=== PATIENT | male | born 1950 | race Caucasian/White ===

== ENCOUNTER 2023-05-12 10:16 | Emergency (ER) | payer MEDICARE, BC, SELFPAY ==
[2023-05-12 10:21] VITALS: BP 156/81; PULSE 65; RESP 18; TEMP 36.8; O2SAT 100; BMI 48.5
--- NOTE | 2023-05-12 10:23 | XRR_ITS ---
PROCEDURE INFORMATION: Exam: XR Chest Exam date and time: 05/12/2023 10:38 AM Age: 72 years old Clinical indication: Cough and dyspnea; Additional info: Dyspnea/cough TECHNIQUE: Imaging protocol: Radiologic exam of the chest. Views: 1 view. COMPARISON: No relevant prior studies available. FINDINGS: Lungs: Mild atelectasis or fibrosis at the cardiac apex. Mild diffuse interstitial prominence. Pleural spaces: Unremarkable. No pleural effusion. No pneumothorax. Heart/Mediastinum: Unremarkable. No cardiomegaly. Bones/joints: Unremarkable. XR/XR chest 1V portable [id number] IMPRESSION: No acute cardiopulmonary disease.
--- NOTE | 2023-05-12 10:23 | ECG_ITS ---
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 Measurements Intervals [place] Rate: 82 P: 48 NH: 145 QRS: 22 QRSD: 100 T: 31 QT: 392 QTc: 460 Interpretive Statements SINUS RHYTHM No previous ECG available for comparison Electronically Signed On 05-12-2023 11:02:07 MENTAL HEALTH SOCIAL WORKER by Archie Curry M.D. [id number]
[2023-05-12 10:36] VITALS: BP 156/81; PULSE 84; RESP 22; O2SAT 100
[2023-05-12 10:50] LABS: Basophils # 0.1 10^3/uL (0.0-0.1); Basophils % 0.5 %; Eosinophils # 0.1 10^3/uL (0.0-0.8); Hematocrit 47.4 % (37-53); Lymphocytes # 1.1 10^3/uL (0.8-4.8); Lymphocytes % 10.8 %; Mean Corpuscular HGB Conc 34.8 g/dL (30-55); Mean Corpuscular Hemoglobin 29.6 pg (27-33); Mean Corpuscular Volume 85.1 fl (82-101); Mean Platelet Volume 11.4 fL (7.4-10.4); Monocytes # 0.8 10^3/uL (0.2-0.9); Monocytes % 7.7 %; Neutrophils # 8.21 10^3/uL (1.8-7.7); Neutrophils % 79.6 %; Nucleated Red Blood Cells % 0 %; Platelet Count 264 10^3/cmm (157-399); Red Blood Count 5.57 10^6/uL (3.85-5.65); Red Cell Distribution Width 13.9 % (12.1-15.1)
--- NOTE | 2023-05-12 11:08 | CT_ITS ---
WS: [id number] CT ABDOMEN PELVIS TECHNIQUE: Noncontrast CT of the abdomen and pelvis with coronal and sagittal reformatted images. CLINICAL INFORMATION: flank pain COMPARISON: None. DLP: 1367.[address] scans at [facility] use at least one of these dose optimization techniques: automated e xposure control; mA and/or kV adjustment per patient size (includes targeted exams where dose is matc hed to clinical indication); or iterative reconstruction. FINDINGS: Inflammatory stranding and edema about the RIGHT kidney suspicious for pyelonephritis. No obstructing renal or ureteral calculi. Mild induration about the RIGHT proximal ureter. No visualized ureteral o r bladder calculi. Slight induration about the RIGHT renal vein nonspecific and recommend renal ultra sound to exclude renal vein thrombosis Mild LEFT perinephric edema may be due to renal insufficiency. Adrenal glands are normal. Mild hepato megaly. Diffuse fatty infiltration of the liver. Normal noncontrast gallbladder. Splenic granulomas. Small esophageal hiatal hernia with air-fluid level. Lung bases are well aerated. Fat-containing LEFT inguinal hernia. Few colonic diverticuli. No evidence of acute diverticulitis. No rmal appendix. Tiny fat-containing umbilical hernia. Noncontrast pancreas appears normal. Normal no shellie abdominal aorta. Aortic calcification. Disc space narrowing worse at L4-L5 and L5-S1. IMPRESSION: 1. Inflammatory stranding and edema about the RIGHT kidney. No significant hydronephrosis. Mild leti ration about the RIGHT proximal ureter. No obstructing renal or ureteral calculi. Recommend correlati on for pyelonephritis. 2. Slight induration of the RIGHT renal vein indeterminate on this noncontrast study. Renal ultrasou nd recommended to evaluate for renal vein thrombosis. 3. Mild LEFT perinephric edema can be seen with renal insufficiency. 4. Normal appendix. 5. Small esophageal hiatal hernia with air-fluid level. 6. Sigmoid and colonic diverticulosis. A few diverticuli in the RIGHT colon. No evidence of acute di verticulitis. 7. Mild constipation hepatic flexure. 8. Fat-containing LEFT inguinal hernia. Notified Wes Jacob DO at 05/12/2023 12:20 PM.
--- NOTE | 2023-05-12 11:11 | W.ED.WEAKNES ---
HPI - Weakness General: Chief complaint: Weakness Stated complaint: general weakness Time Seen by Provider: 05/12/23 10:20 Source: patient Mode of arrival: ambulatory History of Present Illness: 72-year-old male presents emergency department of diffuse generalized weakness. Began around 830 this morning he has a little bit of accompanying shortness of breath with it and some right-sided flank pain rating from his flank down into his right lower quadrant. He has been very nauseous but has not vomited denies any medic easy melena hematemesis cough congestion no dysuria urgency or frequency MD Complaint: generalized weakness Onset (ago): hour(s) Duration: constant Location: generalized Relieving factors: none Exacerbating factors: none Associated symptoms: Reports nausea; Denies chest pain, chills, confusion, melena, decreased appetite, diaphoresis, dysuria, easy bruising, fever(s), headache(s), myalgias, rash, short of breath, syncope or vomiting Review of Systems Const: Denies: fever(s), chills or diaphoresis Card: Denies: chest pain or syncope Resp: Denies: dyspnea GI: Reports: nausea; Denies: vomiting or melena : Denies: dysuria Musc: Denies: neck pain or back pain Skin/Breast: Denies: rash Neuro: Denies: headache(s) or confusion Ariel/Lymph: Denies: easy bruising Physical Exam Const: COMMON NORMALS: no acute distress GENERAL APPEARANCE: cooperative and comfortable ORIENTATION/CONSCIOUSNESS: Yes awake, Yes oriented to person, Yes oriented to place and Yes oriented to time HENMT: COMMON NORMALS: normocephalic, atraumatic and hearing grossly normal bilaterally HEAD & SCALP: normocephalic and atraumatic Resp: COMMON NORMALS: normal respiratory effort, No retractions, No use of accessory muscles and clear to auscultation bilaterally AUSCULTATION: clear to auscultation bilaterally Cardio: COMMON NORMALS: regular rate, regular rhythm and No murmurs present (Cardio) RATE: regular rate RHYTHM: regular rhythm GI: COMMON NORMALS: Soft to palpation and No hepatosplenomegaly present AUSCULTATION: Yes normoactive bowel sounds PALPATION: Yes Soft to palpation, No Tenderness to palpation present (GI), No Guarding due to palpation present (GI) and Yes No hepatosplenomegaly present Extremity: COMMON NORMALS: normal to inspection, capillary refill normal, no clubbing, cyanosis or edema, no calf tenderness and no pedal edema Neuro: SENSORIUM/ORIENTATION: Yes oriented to person, Yes oriented to place and Yes oriented to time Skin: COMMON NORMALS: no rashes or lesions noted GENERAL SKIN EXAM: no rashes or lesions noted Course Vital Signs: Vital signs: Vital Signs Temperature 98.2 F 05/12/23 10:21 Pulse Rate 72 05/12/23 14:14 Respiratory Rate 22 H 05/12/23 10:36 Blood Pressure 124/84 05/12/23 14:14 Pulse Oximetry 96 05/12/23 14:14 Oxygen Delivery Me thod Room Air 05/12/23 10:36 MDM - Weakness Medical Decision Making Labs and imaging reviewed. Patient did have moderate amount of blood in his urine. CT shows some stranding around the right kidney. I discussed Dr. Mccormack. He recommends renal ultrasound to evaluate for renal vein thrombosis. This was completed and was negative. No leukocytosis. Creatinine is mildly elevated. Will recommend starting on Cipro 500 twice daily. Follow-up with primary care return if is worsening problems Medical Records I reviewed the patient's medical records. Lab Data I reviewed the patient's lab results. 05/12/23 10:31 05/12/23 11:16 Radiology Impressions Chest X-Ray 05/12/23 10:23 IMPRESSION: No acute cardiopulmonary disease. Laboratory Results WBC 10.30 10^3/uL (3.29-11.43) 05/12/23 10:31 RBC 5.57 10^6/uL (3.85-5.65) 05/12/23 10:31 Hgb 16.50 g/dL (11.27-16.99) 05/12/23 10:31 Hct 47.4 % (37-53) 05/12/23 10:31 MCV 85.1 fl (82-101) 05/12/23 10:31 MCH 29.6 pg (27-33) 05/12/23 10:31 MCHC 34.8 g/dL (30-55) 05/12/23 10:31 RDW 13.9 % (12.1-15.1) 05/12/23 10:31 Plt Count 264 10^3/cmm (157-399) 05/12/23 10:31 MPV 11.4 fL (7.4-10.4) H 05/12/23 10:31 Neut % (Auto) 79.6 % 05/12/23 10:31 Lymph % (Auto) 10.8 % 05/12/23 10:31 [place] % (Auto) 7.7 % 05/12/23 10:31 Eos % (Auto) 1.0 % 05/12/23 10:31 Baso % (Auto) 0.5 % 05/12/23 10:31 Neut # (Auto) 8.21 10^3/uL (1.8-7.7) H 05/12/23 10:31 Lymph # (Auto) 1.1 10^3/uL (0.8-4.8) 05/12/23 10:31 [place] # (Auto) 0.8 10^3/uL (0.2-0.9) 05/12/23 10:31 Eos # (Auto) 0.1 10^3/uL (0.0-0.8) 05/12/23 10:31 Baso # (Auto) 0.1 10^3/uL (0.0-0.1) 05/12/23 10:31 Nucleated RBC % (auto) 0 % 05/12/23 10:31 Nucleated RBCs # 0.0 /100WBC 05/12/23 10:31 Sodium 135 mmol/L (136-145) L 05/12/23 11:16 Potassium 4.2 mmol/L (3.5-5.1) 05/12/23 11:16 Chloride 97 mmol/L (98-107) L 05/12/23 11:16 Carbon Dioxide 21 mmol/L (22-29) L 05/12/23 11:16 Anion Gap 21.2 (5-19) H 05/12/23 11:16 BUN 15 mg/dL (8-23) 05/12/23 11:16 Creatinine 1.3 mg/dL (0.7-1.2) H 05/12/23 11:16 GFR Calculation 54.6 mL/min (90-130) L 05/12/23 11:16 Glucose 193 mg/dL (65-115) H 05/12/23 11:16 Calculated Osmolality 286 mOsm/kg (285-295) 05/12/23 11:16 Calcium 9.1 mg/dL (8.5-10.5) 05/12/23 11:16 Total Bilirubin 1.0 mg/dL (0.15-1.2) 05/12/23 11:16 AST 20 U/L (0-40) 05/12/23 11:16 ALT 19 U/L (0-41) 05/12/23 11:16 Alkaline Phosphatase 98 U/L (40-130) 05/12/23 11:16 Troponin T Baseline 12 ng/L (0-15) 05/12/23 11:16 Troponin T 120 Minute 10.48 ng/L (0-15) 05/12/23 13:24 Delta Troponin T -1.52 ABS# (0-10) L 05/12/23 13:24 Total Protein 7.0 g/dL (6.6-8.7) 05/12/23 11:16 Albumin 4.0 g/dL (3.5-5.2) 05/12/23 11:16 Globulin 3.0 g/dL (1.3-4.6) 05/12/23 11:16 Urine Color Yellow (Yellow) 05/12/23 10:30 Urine Appearance Sl hazy (CLEAR) A 05/12/23 10:30 Urine pH 8 (5-7) H 05/12/23 10:30 Ur Specific [place] 1.015 (1.005-1.030) 05/12/23 10:30 Urine Protein Neg (Negative) 05/12/23 10:30 Urine Glucose (UA) Norm (Normal) 05/12/23 10:30 Urine Ketones 2+ (Negative) H 05/12/23 10:30 Urine Blood 2+ (Negative) H 05/12/23 10:30 Urine Nitrate Negative (Negative) 05/12/23 10:30 Urine Bilirubin Neg (Negative) 05/12/23 10:30 Prot Sulfosalicylic Acd Negative (Negative) 05/12/23 10:30 Urine Urobilinogen Neg mg/dL (Negative) 05/12/23 10:30 Ur Leukocyte Esterase Negative (Negative) 05/12/23 10:30 Urine RBC 10-15 /hpf (0-2) H 05/12/23 10:30 Urine WBC 0-4 /hpf (0-5) H 05/12/23 10:30 Ur Squamous Epith Cells 0-4 /hpf (0-5) H 05/12/23 10:30 Amorphous Sediment Not Reportable 05/12/23 10:30 Urine Bacteria 3+ /hpf (NONE) H 05/12/23 10:30 Urine Mucus Trace /hpf 05/12/23 10:30 All radiology interpretation(s) finalized by discharge Discharge Plan Discharge Patient Disposition: Home Clinical Impression: Cystitis Condition: Stable Prescriptions: New Cipro 500 mg tablet 500 mg PO BID Qty: 14 0RF No Action venlafaxine 75 mg capsule,extended release 24hr 75 mg PO DAILY glimepiride 2 mg tablet 3 mg PO DAILY pioglitazone 30 mg tablet 30 mg PO DAILY Vitamin D3 125 mcg (5,000 unit) Tablet 125 mcg PO DAILY Ozempic 0.25 mg or 0.5 mg (2 mg/3 mL) pen injector 0.5 mg SUBCUT Q7D Rx Instructions: ON FRIDAY Discharge Orders: Discharge ED (Routine); Ordered 05/12/23 Ordered By: Wes Jacob Referrals: Yen Wesley MD [Primary Care Provider] - Discharge Diet: Usual diet Discharge Activity: Increase activity as tolerated Patient Instructions: Opioid Safety, Pain Management Activity Restrictions/Additional Instructions: Thank you for choosing [facility] for your healthcare needs today. Please realize this is an emergency room and that we are providing you with a medical screening exam and this may not be complete and all inclusive of all the testing and or work up that you may need to determine your ailment or severity of your illness. It is very important that you follow up as instructed or that you return to the Emergency Department should you have concerns or if your condition changes or worsens in any way. Today you were seen for complaint of right flank pain. CT did not show any renal stones there was some stranding around the kidneys suggestive of infection urine had some blood in it which could be potentially from infection. Will culture urine recommend to start Cipro 500 twice a day for 7 days follow-up with your primary care doctor if not improving or worsens. Coding Level of Care Code ED Industrial Seamstress for Helen Jensen
[2023-05-12 11:22] LABS: Add Urine Culture? Yes; Add Urine Microscopic? YES; Bacteria Urine 3+ /hpf; Bilirubin Urine Neg (Negative); Blood Urine 2+ (Negative); Glucose Urine UA Norm (Normal); Ketones Urine 2+ (Negative); Leukocyte Esterase Urine Negative (Negative); Mucus Urine TRACE /hpf; Nitrate Urine Negative (Negative); Protein Urine Neg (Negative); Specific Gravity, Urine 1.015 (1.005-1.030); Squamous Epithelial Cell Urine 0-4 /hpf (0-5); Sulfosalicylic Acid Urine Negative (Negative); Urine Appearance SL Hazy (CLEAR); Urine Color Yellow (Yellow); Urobilinogen Urine Neg (Negative); WBC Urine 0-4 /hpf (0-5); pH Urine 8 (5-7)
[2023-05-12 11:52] LABS: Alanine Aminotransferase 19 U/L (0-41); Alkaline Phosphatase 98 U/L (40-130); Anion Gap 21.2 (5-19); Aspartate Amino Transferase 20 U/L (0-40); Blood Urea Nitrogen 15 mg/dL (8-23); Calcium 9.1 mg/dL (8.5-10.5); Carbon Dioxide 21 mmol/L (22-29); Chloride 97 mmol/L (98-107); Creatinine Clr Calc Pharmacy 71.7243; Glomerular Filtration Rate 54.6 mL/min (90-130); Glucose 193 mg/dL (65-115); Osmolality Calculated 286 mOsm/kg (285-295); Potassium 4.2 mmol/L (3.5-5.1); Sodium 135 mmol/L (136-145)
[2023-05-12 11:54] LABS: Troponin(5th) Baseline 12 ng/L (0-15)
--- NOTE | 2023-05-12 12:11 | US_ITS ---
WS: [id number] ULTRASOUND RENAL TECHNIQUE: Ultrasound examination of both kidneys. CLINICAL INFORMATION: possible renal vein thrombosis COMPARISON: None. FINDINGS: RIGHT: Right kidney is normal in size l. Hydronephrosis: None. Right kidney measures: 12.2 cm x 5.3 cm x 5.9 cm. LEFT: Left kidney is normal in size Hydronephrosis: None. Left kidney measures: 12.0 cm x 5.9 cm x 5.1 cm. Normal visualized aorta. IMPRESSION: 1. No hydronephrosis in either kidney. 2. Both renal arteries and renal veins are patent.
--- NOTE | 2023-05-12 12:23 | ECG_ITS ---
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 Measurements Intervals [place] Rate: 88 P: 47 RI: 158 QRS: 15 QRSD: 103 T: 32 QT: 384 QTc: 465 Interpretive Statements SINUS RHYTHM POSSIBLE LEFT ATRIAL ENLARGEMENT [-0.1mV P-WAVE IN V1/V2] Compared to ECG 05/12/2023 10:35:29 No significant changes Electronically Signed On 05-12-2023 13:30:07 COMPUTER PROGRAMMING PROFESSOR by Archie Curry M.D. [id number]
[2023-05-12 14:02] LABS: Troponin 5 2HR 10.48 ng/L (0-15)
[2023-05-12 14:03] LABS: Troponin 5 2HR Delta -1.52 ABS# (0-10)
[2023-05-12 14:14] VITALS: BP 124/84; PULSE 72; O2SAT 96
== END 2023-05-12 14:17 | disposition home or self-care (01) ==
PROVIDERS: Emergency Provider Family Medicine; PCP Family Medicine
DX: N30.90 Cystitis, unspecified without hematuria (principal); Z79.84 Long term (current) use of oral hypoglycemic drugs
CPT/HCPCS: 36415; 71045; 74176; 76770; 80053; 81001; 84484; 85025; 87086; 93005; 99285

== ENCOUNTER → 2024-07-28 08:35 | Outpatient (BNVA) | payer MEDICARE, SELFPAY | PROVIDERS: PCP Family Medicine; Visit Provider Nurse Practitioner Family | DX: L60.8 Other nail disorders (principal); L85.3 Xerosis cutis; L90.5 Scar conditions and fibrosis of skin; L30.9 Dermatitis, unspecified | CPT/HCPCS: 11104; 99204 ==

== ENCOUNTER → 2024-08-09 14:40 | Outpatient (BNVA) | payer MEDICARE, SELFPAY | PROVIDERS: PCP Family Medicine; Visit Provider Nurse Practitioner Family | DX: L43.0 Hypertrophic lichen planus (principal) | CPT/HCPCS: 99213 ==

== ENCOUNTER → 2024-11-11 10:02 | Outpatient (BNVA) | payer MEDICARE, SELFPAY | PROVIDERS: PCP Family Medicine; Visit Provider Nurse Practitioner Family | DX: L43.0 Hypertrophic lichen planus (principal) | CPT/HCPCS: 99213 ==